=== PATIENT | female | born 1990 | race Two or more races ===

== ENCOUNTER 2016-07-11 12:39 | Emergency (ER) | payer SELFPAY ==
[~2016-07-11] VITALS: Ht 162.6 cm; Wt 80.0 kg
[2016-07-11 12:41] VITALS: BP 140/80; PULSE 60; RESP 20; TEMP 98.7; O2SAT 98
--- NOTE | 2016-07-11 12:47 | PD ---
Physical Exam Time Seen by Provider: 12:45 Narrative Complains of n/v/d and abdominal/back pain for 2 days. VSS Seen at triage desk. Awaiting bed placement. Data Data Last Documented VS Vital Signs Date Time Temp Pulse Resp B/P Pulse Ox O2 Delivery O2 Flow Rate FiO2 07/11/16 12:41 98.7 60 20 140/80 98 Room Air [facility] Medical Record Reviewed: Yes Supervised Visit with ADIS: Yes Arley Solis Jul 11, 2016 12:47
[2016-07-11] MEDS ORDERED: BENT20TA PO (13:07)
[2016-07-11] MEDS ORDERED: PROM25TA5 PO (13:07)
--- NOTE | 2016-07-11 13:08 | PD ---
HPI Chief Complaint: GI Complaint Time Seen by Provider: 12:57 Travel History International Travel<30 days: No Contact w/Intl Traveler<30days: No Traveled to known affect area: No History of Present Illness HPI 26-year-old female complains of abdominal cramping, nausea vomiting diarrhea. Patient states the symptoms started this morning. Patient states that she lumbar as some bad food yesterday. Patient denies any headache. Patient denies any chest pain or shortness of breath. Patient denies any fever. Patient denies any back pain. Patient denied dysuria or frequency. Patient had vaginal discharge or bleeding. Patient states that the abdominal pain cramping pain mostly around the epigastric area. Patient denies any pain radiation. On a scale of 1-10 the pain is a 5. PFSH Past Medical History ?: Not Social History Tobacco Use: No Allergies-Medications (Allergen,Severity, Reaction): Coded Allergies: No Known Allergies (Unverified , 07/11/16) Reported Meds & Prescriptions Reported Meds & Active Scripts Active Bentyl (Dicyclomine HCl) 20 Mg Tab 20 Mg PO TID Phenergan (Promethazine HCl) 25 Mg Tab 25 Mg PO Q6H PRN Review of Systems General / Constitutional: No: Fever Eyes: No: Visual changes HENT: No: Headaches Cardiovascular: No: Chest Pain or Discomfort Respiratory: No: Shortness of Breath Gastrointestinal: Positive: Nausea, Vomiting, Diarrhea, Abdominal Pain Genitourinary: No: Dysuria Musculoskeletal: No: Pain Skin: No Rash Neurologic: No: Weakness Psychiatric: No: Depression Endocrine: No: Polydipsia Hematologic/Lymphatic: No: Easy Bruising Physical Exam Narrative GENERAL: Well-nourished, well-developed patient. SKIN: Focused skin assessment warm/dry. HEAD: Normocephalic. EYES: No scleral icterus. No injection or drainage. NECK: Supple, trachea midline. No JVD or lymphadenopathy. CARDIOVASCULAR: Regular rate and rhythm without murmurs, gallops, or rubs. RESPIRATORY: Breath sounds equal bilaterally. No accessory muscle use. GASTROINTESTINAL: Abdomen soft, nondistended. Patient has mild tenderness on palpation epigastric area. No rebound tenderness. No mass. MUSCULOSKELETAL: No cyanosis, or edema. BACK: Nontender without obvious deformity. No CVA tenderness. Data Data Last Documented VS Vital Signs Date Time Temp Pulse Resp B/P Pulse Ox O2 Delivery O2 Flow Rate FiO2 07/11/16 14:00 18 07/11/16 12:41 98.7 60 140/80 98 Room Air Orders Dicyclomine Inj (Bentyl Inj) (07/11/16 13:15) Ondansetron Odt (Zofran Odt) (07/11/16 13:15) MDM Medical Decision Making Medical Screen Exam Complete: Yes Emergency Medical Condition: Yes Differential Diagnosis Differential diagnosis including gastroenteritis, gastritis, PUD, pancreatitis, cholecystitis, colitis, UTI, pyelonephritis. Narrative Course 26-year-old female with epigastric abdominal pain, nausea vomiting diarrhea. Bentyl 20 mg IM. Zofran 4 mg ODT. Diagnosis Primary Impression: Gastroenteritis Patient Instructions: General Instructions Additional Instructions: Take medications as needed. Imodium [id number] for diarrhea. Clear fluids for 24 hours and advance as tolerated. Follow-up with personal physician. Return if persistent problem or worse. Med/Other Pt SpecificInfo: Prescription(s) given Scripts Dicyclomine (Bentyl)20 Mg Tab20 Mg PO TID #15 TAB Ref 0 Prov:Cristian Patel MD 07/11/16 Promethazine (Phenergan)25 Mg Tab25 Mg PO Q6H PRN (Nausea/Vomiting) #12 TAB Ref 0 Prov:Cristian Patel MD 07/11/16 Disposition: 01 DISCHARGE HOME Condition: Stable Cristian Patel MD Jul 11, 2016 13:08
[2016-07-11] MEDS ORDERED: DICYCLOMINE HCL 20 MG/2 ML VIAL IM ONE (13:15)
[2016-07-11] MEDS ORDERED: ONDANSETRON ODT 4 MG TAB PO ONE (13:15)
== END 2016-07-11 14:21 | disposition home or self-care (01) ==
LOC: NEPD 12:39
DX: K52.9 Noninfective gastroenteritis and colitis, unspecified (principal)
CPT/HCPCS: 96372; 99283; J0500